=== PATIENT | female | born 1970 | race African-American/Black ===

== ENCOUNTER 2020-04-19 13:05 | Emergency (ER) | payer SELFPAY ==
[2020-04-19 15:00] LABS: #Basophils 0.1 thou/uL (0.0-0.2); #Eosinphils 0.6 thou/uL (0.0-0.7); #Lymphocytes 1.9 thou/uL (1.20-3.40); #Monocytes 0.4 thou/uL (0.11-0.59); #Neutrophils 5.8 thou/uL (1.40-6.50); %Basophils 0.7 % (0.0-1.0); %Eosinophils 6.9 % (0.0-10.0); %Lymphocytes 21.3 % (21.0-51.0); Hemoglobin 13.3 g/dL (12.0-16.0); Mean Corpuscular HGB CONC 33.1 g/dL (32.0-36.0); Mean Corpuscular Hemoglobin 26.4 pg (27.0-31.0); Mean Corpuscular Volume 79.6 fL (78.0-98.0); Mean Platelet Volume 10.4 fL (7.4-10.4); Platelet Count 254 thou/uL (130-400); RBC Distribution Width 14.1 % (11.5-14.5); Red Blood Cell (RBC) Count 5.03 mill/uL (4.20-5.40); White Blood Cell (WBC) Count 8.8 thou/uL (4.8-10.8)
[2020-04-19 15:24] LABS: ALT (SGPT) 22 U/L (8-55); AST (SGOT) 19 U/L (5-34); Albumin 3.8 g/dL (3.5-5.0); Alkaline Phosphatase 72 U/L (40-110); Anion Gap 16 mmol/L (10-20); BUN (Urea Nitrogen) 14 mg/dL (9.8-20.1); Bilirubin, Total 0.2 mg/dL (0.2-1.2); Calc. Creatinine Clearance 0 mL/min (70-130); Calcium 9.1 mg/dL (7.8-10.44); Carbon Dioxide 25 mmol/L (22-29); Chloride 106 mmol/L (98-107); Globulin 4.4 g/dL (2.4-3.5); Glucose 140 mg/dL (70-105); Potassium 3.7 mmol/L (3.5-5.1); Protein, Total 8.2 g/dL (6.0-8.3); Sodium 143 mmol/L (136-145)
--- NOTE | 2020-04-19 16:06 | RAD ---
EXAM: CHEST ONE VIEW HISTORY: Weakness. Covid negative. Dry mouth and hypertension. COMPARISON: None FINDINGS: Cardiac silhouette is magnified by projection. Pulmonary vasculature is within normal limits. The gurdeep gs are clear. Degenerative changes are seen in the thoracic spine. IMPRESSION: No acute cardiopulmonary process.
[2020-04-19] MEDS ORDERED: Labetalol HCl 100 MG/20 ML VIAL ONE (16:53)
--- NOTE | 2020-04-23 16:53 | EKG ---
Test Reason : Blood Pressure : / mmHG Vent. Rate : 103 BPM Atrial Rate : 103 BPM P-R Int : 166 ms QRS Dur : 096 ms QT Int : 360 ms P-R-T Axes : 048 -25 036 degrees QTc Int : 471 ms Sinus tachycardia Possible Left atrial enlargement Left ventricular hypertrophy Abnormal ECG Confirmed by MATT AMBRIZ ([id number]), editorial clerk SLOAN MOSCOSO ([id number] on 04/23/2020 4:52:51 PM Referred By: Confirmed By:MATT Burdick
== END 2020-04-19 17:17 | disposition home or self-care (01) ==
LOC: ERS 13:05
DX: R53.1 Weakness (principal); I10 Essential (primary) hypertension
CPT/HCPCS: 36415; 71045; 80053; 84484; 85025; 93005; 96374

== ENCOUNTER 2021-11-24 21:44 | Emergency (ER) | payer SELFPAY ==
[2021-11-24 22:53] LABS: #Basophils 0.1 thou/uL (0.0-0.2); #Eosinphils 0.5 thou/uL (0.0-0.7); #Lymphocytes 2.5 thou/uL (1.20-3.40); #Monocytes 0.7 thou/uL (0.11-0.59); %Basophils 0.7 % (0.0-1.0); %Eosinophils 4.6 % (0.0-10.0); %Monocytes 6.3 % (0.0-10.0); %Neutrophils 65.5 % (42.0-75.0); Hemoglobin 12.9 g/dL (12.0-16.0); Mean Corpuscular HGB CONC 32.1 g/dL (32.0-36.0); Mean Corpuscular Hemoglobin 25.8 pg (27.0-31.0); Mean Corpuscular Volume 80.3 fL (78.0-98.0); Mean Platelet Volume 9.6 fL (7.4-10.4); Platelet Count 282 thou/uL (130-400); RBC Distribution Width 14.9 % (11.5-14.5); White Blood Cell (WBC) Count 10.7 thou/uL (4.8-10.8)
[2021-11-24 23:14] LABS: ALT (SGPT) 14 U/L (8-55); AST (SGOT) 16 U/L (5-34); Albumin 3.9 g/dL (3.5-5.0); Alkaline Phosphatase 66 U/L (40-110); Anion Gap 16 mmol/L (10-20); BUN (Urea Nitrogen) 11 mg/dL (9.8-20.1); Bilirubin, Total 0.2 mg/dL (0.2-1.2); Calc. Creatinine Clearance 0 mL/min (70-130); Calcium 9.6 mg/dL (7.8-10.44); Carbon Dioxide 23 mmol/L (22-29); Chloride 105 mmol/L (98-107); Estimated GFR 67; Globulin 4.5 g/dL (2.4-3.5); Glucose 109 mg/dL (70-105); Lipase 13 U/L (8-78); Protein, Total 8.4 g/dL (6.0-8.3); Sodium 140 mmol/L (136-145)
[2021-11-24 23:45] LABS: Bilirubin Negative (Negative); Blood, Urine Small (Negative); Glucose, Urine (Dipstick) Negative (Negative); Ketone, Urine Negative (Negative); Leukocyte Negative (Negative); Nitrite Negative (Negative); Protein, Urine (Dipstick) Negative (Neg-Trace); Specific Gravity, Urine 1.025 (1.005-1.030); Urobilinogen 0.2 mg/dL (Less than 2); pH, Urine 5.5 (5.0-9.0)
[2021-11-24 23:46] LABS: Clarity Clear (Clear)
[2021-11-25 00:09] LABS: RBC/HPF 0-3 HPF (0-3); Squamous Epithelial 0-3 HPF (0-3); WBC/HPF 0-3 HPF (0-3)
[2021-11-25 00:10] LABS: Bacteria/HPF 1+ HPF (None Seen)
== END 2021-11-25 01:28 | disposition home or self-care (01) ==
LOC: ERS 21:44
DX: R42 Dizziness and giddiness (principal); R55 Syncope and collapse; R06.4 Hyperventilation; Z79.899 Other long term (current) drug therapy
CPT/HCPCS: 36415; 71045; 80053; 81003; 81015; 83690; 84443; 84484; 85025; 93005

== ENCOUNTER 2021-12-01 11:03 | Emergency (ER) | payer SELFPAY | END 2021-12-01 12:06 | disposition home or self-care (01) | LOC: ERS 11:03 | DX: I10 Essential (primary) hypertension (principal); Z79.899 Other long term (current) drug therapy | CPT/HCPCS: 99283 ==

== ENCOUNTER 2021-12-11 20:59 | Inpatient (IN) | payer SELFPAY ==
[2021-12-11 21:20] LABS: #Basophils 0.1 thou/uL (0.0-0.2); #Eosinphils 0.7 thou/uL (0.0-0.7); #Lymphocytes 3.2 thou/uL (1.20-3.40); #Monocytes 0.7 thou/uL (0.11-0.59); #Neutrophils 4.9 thou/uL (1.40-6.50); %Basophils 0.7 % (0.0-1.0); %Eosinophils 7.4 % (0.0-10.0); %Lymphocytes 33.7 % (21.0-51.0); %Neutrophils 51.2 % (42.0-75.0); Mean Corpuscular HGB CONC 31.9 g/dL (32.0-36.0); Mean Corpuscular Hemoglobin 25.3 pg (27.0-31.0); Mean Corpuscular Volume 79.3 fL (78.0-98.0); Mean Platelet Volume 9.2 fL (7.4-10.4); Platelet Count 263 thou/uL (130-400); RBC Distribution Width 14.6 % (11.5-14.5); Red Blood Cell (RBC) Count 5.13 mill/uL (4.20-5.40); White Blood Cell (WBC) Count 9.6 thou/uL (4.8-10.8)
[2021-12-11 21:42] LABS: ALT (SGPT) 21 U/L (8-55); AST (SGOT) 16 U/L (5-34); Alkaline Phosphatase 64 U/L (40-110); Anion Gap 12 mmol/L (10-20); BUN (Urea Nitrogen) 14 mg/dL (9.8-20.1); Bilirubin, Total 0.2 mg/dL (0.2-1.2); Calc. Creatinine Clearance 0 mL/min (70-130); Calcium 9.9 mg/dL (7.8-10.44); Carbon Dioxide 28 mmol/L (22-29); Chloride 107 mmol/L (98-107); Estimated GFR 68; Globulin 4.5 g/dL (2.4-3.5); Glucose 103 mg/dL (70-105); Lipase 18 U/L (8-78); Potassium 4.2 mmol/L (3.5-5.1); Protein, Total 8.5 g/dL (6.0-8.3); Sodium 143 mmol/L (136-145)
[2021-12-12 00:24] LABS: Magnesium 2.2 mg/dL (1.6-2.6)
[2021-12-12] MEDS ORDERED: Ondansetron PF 4 MG/2 ML Vial IVP PRN (01:30)
[2021-12-12] MEDS ORDERED: Ondansetron ODT 4 MG TAB SL PRN (01:30)
[2021-12-12] MEDS ORDERED: Acetaminophen 325 MG TAB PO PRN (01:30)
[2021-12-12 01:34] VITALS: BMI 54.1
[2021-12-12] MEDS ORDERED: hydrALAZINE 20 MG/ML VIAL SLOW IVP PRN (03:20)
[2021-12-12 05:26] LABS: Anion Gap 15 mmol/L (10-20); BUN (Urea Nitrogen) 13 mg/dL (9.8-20.1); Calc. Creatinine Clearance 200 mL/min (70-130); Calcium 9.3 mg/dL (7.8-10.44); Carbon Dioxide 22 mmol/L (22-29); Chloride 108 mmol/L (98-107); Estimated GFR 84; Glucose 106 mg/dL (70-105); Magnesium 2.1 mg/dL (1.6-2.6); Potassium 3.8 mmol/L (3.5-5.1); Sodium 141 mmol/L (136-145)
[2021-12-12 05:55] LABS: Band 1 % (5-11); Eosinophils 6 % (0-10); Hemoglobin 11.4 g/dL (12.0-16.0); Lymphocytes 39 % (21-51); MDiff Complete? YES; Mean Corpuscular HGB CONC 32.1 g/dL (32.0-36.0); Mean Corpuscular Hemoglobin 25.4 pg (27.0-31.0); Mean Platelet Volume 10.5 fL (7.4-10.4); Monocytes 3 % (0-10); Neutrophil 51 % (42-75); Platelet Count 218 thou/uL (130-400); Platelet Morphology Comment Appears Adequate; RBC Distribution Width 14.9 % (11.5-14.5); RBC Morphology Normal; White Blood Cell (WBC) Count 8.4 thou/uL (4.8-10.8)
[2021-12-12] MEDS: Enoxaparin Sodium 40 MG/0.4 ML SYRINGE SC SCH (08:08)
[2021-12-12] MEDS: hydrALAZINE 20 MG/ML VIAL SLOW IVP PRN ×2 (19:23→20:55)
[2021-12-12] MEDS: Acetaminophen 325 MG TAB PO PRN (21:09)
[2021-12-13] MEDS: Acetaminophen 325 MG TAB PO PRN ×2 (03:24→10:05)
[2021-12-13] MEDS: hydrALAZINE 20 MG/ML VIAL SLOW IVP PRN (03:25)
[2021-12-13 04:45] LABS: #Eosinphils 0.5 thou/uL (0.0-0.7); #Lymphocytes 2.4 thou/uL (1.20-3.40); #Monocytes 0.5 thou/uL (0.11-0.59); %Basophils 0.5 % (0.0-1.0); %Eosinophils 6.6 % (0.0-10.0); %Lymphocytes 32.7 % (21.0-51.0); %Monocytes 6.1 % (0.0-10.0); Hemoglobin 13.1 g/dL (12.0-16.0); Mean Corpuscular HGB CONC 32.7 g/dL (32.0-36.0); Mean Corpuscular Hemoglobin 25.9 pg (27.0-31.0); Mean Corpuscular Volume 79.4 fL (78.0-98.0); Platelet Count 245 thou/uL (130-400); RBC Distribution Width 14.9 % (11.5-14.5); Red Blood Cell (RBC) Count 5.06 mill/uL (4.20-5.40); White Blood Cell (WBC) Count 7.5 thou/uL (4.8-10.8)
[2021-12-13 06:04] LABS: Anion Gap 17 mmol/L (10-20); BUN (Urea Nitrogen) 11 mg/dL (9.8-20.1); Calc. Creatinine Clearance 207 mL/min (70-130); Calcium 9.3 mg/dL (7.8-10.44); Carbon Dioxide 20 mmol/L (22-29); Chloride 108 mmol/L (98-107); Estimated GFR 88; Glucose 99 mg/dL (70-105); Potassium 3.9 mmol/L (3.5-5.1); Sodium 141 mmol/L (136-145)
[2021-12-13] MEDS: Enoxaparin Sodium 40 MG/0.4 ML SYRINGE SC SCH (07:59)
[2021-12-13] MEDS ORDERED: Carvedilol 6.25 MG TAB PO SCH (08:00)
[2021-12-13] MEDS ORDERED: cloNIDine 0.1 MG TAB PO SCH (09:00)
[2021-12-13 11:52] VITALS: TEMP 98
[2021-12-13 13:57] VITALS: BP 163/92
== END 2021-12-13 12:22 | disposition home or self-care (01) | DRG 918 ==
LOC: ERS 20:59 → 2SW 23:52 → OBSVTOIN 12-12 15:31
PROVIDERS: ADMIT Internal Medicine; ATTEND Hospitalist
DX: T46.5X1A Poisoning by other antihypertensive drugs, accidental (unintentional), initial encounter (principal); Z68.43 Body mass index [BMI] 50.0-59.9, adult; T44.7X1A Poisoning by beta-adrenoreceptor antagonists, accidental (unintentional), initial encounter; I10 Essential (primary) hypertension; T44.7X5A Adverse effect of beta-adrenoreceptor antagonists, initial encounter; E66.01 Morbid (severe) obesity due to excess calories; T46.5X5A Adverse effect of other antihypertensive drugs, initial encounter; Z20.822 Contact with and (suspected) exposure to COVID-19; Z88.5 Allergy status to narcotic agent; Z79.899 Other long term (current) drug therapy; Y92.009 Unspecified place in unspecified non-institutional (private) residence as the place of occurrence of the external cause
CPT/HCPCS: 36415; 71045; 80048; 80053; 83690; 83735; 84443; 84484; 85025; 93005; 93306; J0360; J1650; U0003; U0005

== ENCOUNTER 2021-12-19 18:18 | Emergency (ER) | payer SELFPAY ==
[2021-12-19] MEDS ORDERED: hydrALAZINE 20 MG/ML VIAL ONE (19:06)
[2021-12-19 19:08] LABS: #Basophils 0.1 thou/uL (0.0-0.2); #Eosinphils 0.5 thou/uL (0.0-0.7); #Lymphocytes 2.4 thou/uL (1.20-3.40); #Monocytes 0.7 thou/uL (0.11-0.59); #Neutrophils 7.2 thou/uL (1.40-6.50); %Basophils 0.7 % (0.0-1.0); %Eosinophils 4.9 % (0.0-10.0); %Lymphocytes 21.8 % (21.0-51.0); %Monocytes 6.1 % (0.0-10.0); %Neutrophils 66.4 % (42.0-75.0); Hemoglobin 12.8 g/dL (12.0-16.0); Mean Corpuscular HGB CONC 32.3 g/dL (32.0-36.0); Mean Corpuscular Hemoglobin 25.4 pg (27.0-31.0); Mean Corpuscular Volume 78.6 fL (78.0-98.0); Mean Platelet Volume 9.9 fL (7.4-10.4); Platelet Count 258 thou/uL (130-400); RBC Distribution Width 14.9 % (11.5-14.5); Red Blood Cell (RBC) Count 5.03 mill/uL (4.20-5.40); White Blood Cell (WBC) Count 10.9 thou/uL (4.8-10.8)
[2021-12-19 19:43] LABS: ALT (SGPT) 33 U/L (8-55); AST (SGOT) 23 U/L (5-34); Albumin 4.1 g/dL (3.5-5.0); Alkaline Phosphatase 66 U/L (40-110); Anion Gap 16 mmol/L (10-20); BUN (Urea Nitrogen) 12 mg/dL (9.8-20.1); Bilirubin, Total 0.3 mg/dL (0.2-1.2); CK (CPK) 110 U/L (29-168); Calc. Creatinine Clearance 0 mL/min (70-130); Calcium 9.5 mg/dL (7.8-10.44); Carbon Dioxide 24 mmol/L (22-29); Chloride 105 mmol/L (98-107); Estimated GFR 64; Globulin 4.3 g/dL (2.4-3.5); Glucose 94 mg/dL (70-105); Lipase 17 U/L (8-78); Potassium 3.9 mmol/L (3.5-5.1); Protein, Total 8.4 g/dL (6.0-8.3); Sodium 141 mmol/L (136-145)
== END 2021-12-19 20:35 | disposition home or self-care (01) ==
LOC: ERS 18:18
DX: I10 Essential (primary) hypertension (principal); Z79.899 Other long term (current) drug therapy
CPT/HCPCS: 80053; 82550; 83690; 84484; 85025; 93005; 96374; J0360

== ENCOUNTER 2021-12-23 17:52 | Emergency (ER) | payer SELFPAY ==
[2021-12-23 18:41] LABS: #Basophils 0.1 thou/uL (0.0-0.2); #Eosinphils 0.6 thou/uL (0.0-0.7); #Lymphocytes 2.6 thou/uL (1.20-3.40); #Monocytes 0.8 thou/uL (0.11-0.59); #Neutrophils 5.8 thou/uL (1.40-6.50); %Basophils 0.9 % (0.0-1.0); %Eosinophils 5.9 % (0.0-10.0); %Monocytes 8.2 % (0.0-10.0); Mean Corpuscular HGB CONC 32.8 g/dL (32.0-36.0); Mean Corpuscular Hemoglobin 25.9 pg (27.0-31.0); Mean Platelet Volume 9.9 fL (7.4-10.4); Platelet Count 295 thou/uL (130-400); RBC Distribution Width 14.9 % (11.5-14.5); Red Blood Cell (RBC) Count 5.02 mill/uL (4.20-5.40); White Blood Cell (WBC) Count 9.8 thou/uL (4.8-10.8)
[2021-12-23] MEDS ORDERED: hydrALAZINE 25 MG TAB ONE (18:46)
[2021-12-23 18:59] LABS: Anion Gap 17 mmol/L (10-20); BUN (Urea Nitrogen) 17 mg/dL (9.8-20.1); Calc. Creatinine Clearance 0 mL/min (70-130); Calcium 9.5 mg/dL (7.8-10.44); Carbon Dioxide 21 mmol/L (22-29); Chloride 107 mmol/L (98-107); Estimated GFR 67; Glucose 96 mg/dL (70-105); Potassium 4.2 mmol/L (3.5-5.1); Sodium 141 mmol/L (136-145)
[2021-12-23] MEDS ORDERED: Carvedilol 6.25 MG TAB PO SCH (19:00)
[2021-12-23] MEDS ORDERED: Amlodipine 5 MG TAB ONE (19:48)
[2021-12-23 20:54] LABS: Bacteria/HPF None Seen HPF (None Seen); Bilirubin Negative (Negative); Blood, Urine Negative (Negative); Clarity Clear (Clear); Glucose, Urine (Dipstick) Normal (Negative); Ketone, Urine Negative (Negative); Leukocyte 25 Leu/uL (Negative); Nitrite Negative (Negative); Protein, Urine (Dipstick) Negative (Neg-Trace); RBC/HPF 0-3 HPF (0-3); Specific Gravity, Urine 1.017 (1.002-1.036); Squamous Epithelial 0-3 HPF (0-3); Urobilinogen Normal mg/dL (Less than 2); WBC/HPF 0-3 HPF (0-3)
== END 2021-12-23 21:00 | disposition home or self-care (01) ==
LOC: ERS 17:52
DX: I10 Essential (primary) hypertension (principal); Z79.899 Other long term (current) drug therapy
CPT/HCPCS: 36415; 80048; 81003; 81015; 84484; 85025; 93005

== ENCOUNTER 2022-01-29 21:35 | Emergency (ER) | payer SELFPAY ==
[2022-01-29 22:10] LABS: #Basophils 0.1 thou/uL (0.0-0.2); #Eosinphils 0.7 thou/uL (0.0-0.7); #Lymphocytes 2.8 thou/uL (1.20-3.40); #Monocytes 0.7 thou/uL (0.11-0.59); #Neutrophils 5.9 thou/uL (1.40-6.50); %Basophils 0.6 % (0.0-1.0); %Eosinophils 6.5 % (0.0-10.0); %Lymphocytes 27.9 % (21.0-51.0); %Monocytes 6.9 % (0.0-10.0); %Neutrophils 58.1 % (42.0-75.0); Hemoglobin 12.1 g/dL (12.0-16.0); Mean Corpuscular HGB CONC 31.8 g/dL (32.0-36.0); Mean Corpuscular Hemoglobin 25.5 pg (27.0-31.0); Mean Corpuscular Volume 80.2 fL (78.0-98.0); Mean Platelet Volume 9.6 fL (7.4-10.4); Platelet Count 273 thou/uL (130-400); RBC Distribution Width 14.3 % (11.5-14.5); Red Blood Cell (RBC) Count 4.75 mill/uL (4.20-5.40); White Blood Cell (WBC) Count 10.1 thou/uL (4.8-10.8)
[2022-01-29 22:32] LABS: ALT (SGPT) 17 U/L (8-55); AST (SGOT) 14 U/L (5-34); Albumin 3.8 g/dL (3.5-5.0); Alkaline Phosphatase 63 U/L (40-110); Anion Gap 13 mmol/L (10-20); BUN (Urea Nitrogen) 12 mg/dL (9.8-20.1); Bilirubin, Total 0.3 mg/dL (0.2-1.2); Calc. Creatinine Clearance 0 mL/min (70-130); Calcium 9.2 mg/dL (7.8-10.44); Carbon Dioxide 25 mmol/L (22-29); Chloride 106 mmol/L (98-107); Estimated GFR 64; Globulin 4.1 g/dL (2.4-3.5); Glucose 100 mg/dL (70-105); Potassium 3.9 mmol/L (3.5-5.1); Protein, Total 7.9 g/dL (6.0-8.3); Sodium 140 mmol/L (136-145)
== END 2022-01-29 23:20 | disposition home or self-care (01) ==
LOC: ERS 21:35
DX: R00.2 Palpitations (principal); I10 Essential (primary) hypertension; Z79.899 Other long term (current) drug therapy
CPT/HCPCS: 36415; 71045; 80053; 85025; 93005

== ENCOUNTER 2022-11-10 23:07 | Emergency (ER) | payer SELFPAY | END 2022-11-11 00:05 | disposition home or self-care (01) | LOC: ERS 23:07 | DX: I10 Essential (primary) hypertension (principal) | CPT/HCPCS: 93005 ==

== ENCOUNTER 2023-05-14 14:21 | Inpatient (IN) | payer SELFPAY ==
[2023-05-14 15:12] LABS: #Basophils 0.1 thou/uL (0.0-0.2); #Eosinphils 0.5 thou/uL (0.0-0.7); #Monocytes 0.8 thou/uL (0.11-0.59); #Neutrophils 6.5 thou/uL (1.40-6.50); %Basophils 0.6 % (0.0-1.0); %Eosinophils 4.7 % (0.0-10.0); %Lymphocytes 26.6 % (21.0-51.0); %Monocytes 7.3 % (0.0-10.0); %Neutrophils 60.5 % (42.0-75.0); Hemoglobin 13.3 g/dL (12.0-16.0); Mean Corpuscular HGB CONC 31.7 g/dL (32.0-36.0); Mean Corpuscular Hemoglobin 25.2 pg (27.0-31.0); Mean Corpuscular Volume 79.7 fl (78.0-98.0); Mean Platelet Volume 11.3 fL (7.4-10.4); Platelet Count 323 10x3/uL (130-400); RBC Distribution Width 15.2 % (11.5-14.5); Red Blood Cell (RBC) Count 5.27 mill/uL (4.20-5.40); White Blood Cell (WBC) Count 10.8 10x3/uL (4.8-10.8)
[2023-05-14 15:40] LABS: Troponin I Less than 0.010 ng/mL (< 0.028)
[2023-05-14 15:43] LABS: ALT (SGPT) 16 U/L (8-55); AST (SGOT) 13 U/L (5-34); Albumin 3.9 g/dL (3.5-5.0); Alkaline Phosphatase 67 U/L (40-110); Anion Gap 15 mmol/L (10-20); BUN (Urea Nitrogen) 15 mg/dL (9.8-20.1); Bilirubin, Total 0.2 mg/dL (0.2-1.2); Calc. Creatinine Clearance 0 mL/min (70-130); Calcium 9.2 mg/dL (7.8-10.44); Carbon Dioxide 23 mmol/L (22-29); Chloride 108 mmol/L (98-107); Estimated GFR 80; Globulin 3.8 g/dL (2.4-3.5); Glucose 90 mg/dL (70-105); Lipase 28 U/L (8-78); Potassium 3.7 mmol/L (3.5-5.1); Protein, Total 7.7 g/dL (6.0-8.3); Sodium 142 mmol/L (136-145)
[2023-05-14] MEDS ORDERED: Acetaminophen 650 MG Suppository PR PRN (17:13)
[2023-05-14] MEDS ORDERED: Bisacodyl 5 MG TAB PO PRN (17:13)
[2023-05-14] MEDS ORDERED: Ondansetron ODT 4 MG TAB PO PRN (17:13)
[2023-05-14] MEDS ORDERED: Loperamide HCl 2 MG CAP PO PRN ×2 (17:13)
[2023-05-14] MEDS ORDERED: Moisturizing Cream (Eucerin) 113 GM JAR TOP PRN (17:13)
[2023-05-14] MEDS ORDERED: Artificial Tear Sol 15 ML BOT EA EYE PRN (17:13)
[2023-05-14] MEDS ORDERED: Senokot S 8.6-50 MG TAB PO PRN (17:13)
[2023-05-14] MEDS ORDERED: Nitroglycerin 0.4 MG TAB (25 Tab Bottle) SL PRN (17:13)
[2023-05-14] MEDS ORDERED: Ondansetron PF 4 MG/2 ML Vial IVP PRN (17:13)
[2023-05-14] MEDS ORDERED: Acetaminophen 325 MG TAB PO PRN (17:13)
[2023-05-14] MEDS ORDERED: Benzonatate 100 MG CAP PO PRN (17:13)
[2023-05-14] MEDS ORDERED: Carvedilol 6.25 MG TAB PO SCH (18:00)
[2023-05-14 18:42] LABS: Cardiac Risk 3.7 (Less than 4.5); Cholesterol 149 mg/dl (< 200 Desired); HDL Cholesterol 40 mg/dL (>60 Neg Risk); LDL Cholesterol, Calculated 89 mg/dL; Magnesium 2.2 mg/dL (1.6-2.6); Phosphorus 3.4 mg/dL (2.3-4.7); Triglycerides 99 mg/dL (Less than 150)
[2023-05-14 18:48] LABS: Troponin I Less than 0.010 ng/mL (< 0.028)
[2023-05-14 19:08] LABS: Free T4 (Free Thyroxine) 0.96 ng/dL (0.70-1.48); Thyroid Stimulating Hormone 1.2075 uIU/mL (0.35-4.94)
[2023-05-14] MEDS: Famotidine 20 MG TAB PO SCH (20:34)
[2023-05-14] MEDS: hydrALAZINE 25 MG TAB PO SCH (20:34)
[2023-05-14] MEDS: Apixaban 5 MG TAB PO SCH (20:34)
[2023-05-14 21:38] LABS: SARS-CoV-2 NAA Rapid Test Not Detected (NotDetected)
[2023-05-14 21:50] VITALS: BMI 50.9
[2023-05-15] MEDS ORDERED: Enoxaparin 40 MG (0.4 mL) SYRINGE SC SCH (09:00)
[2023-05-15] MEDS: Carvedilol 6.25 MG TAB PO SCH ×2 (09:07→16:44)
[2023-05-15] MEDS: Famotidine 20 MG TAB PO SCH ×2 (09:08→20:08)
[2023-05-15] MEDS: Apixaban 5 MG TAB PO SCH ×2 (09:08→20:08)
[2023-05-15] MEDS: hydrALAZINE 25 MG TAB PO SCH ×3 (09:09→20:09)
[2023-05-16 07:51] VITALS: BP 136/76; TEMP 97.8
[2023-05-16] MEDS: Apixaban 5 MG TAB PO SCH (09:03)
[2023-05-16] MEDS: Famotidine 20 MG TAB PO SCH (09:03)
[2023-05-16] MEDS: Carvedilol 6.25 MG TAB PO SCH (09:03)
[2023-05-16] MEDS: hydrALAZINE 25 MG TAB PO SCH (09:04)
== END 2023-05-16 11:49 | disposition home or self-care (01) | DRG 309 ==
LOC: ERS 14:21 → ERHOLD 17:17 → 2SW 19:56 → OBSVTOIN 05-16 08:44
PROVIDERS: ADMIT Family Medicine; ATTEND Internal Medicine
DX: I48.91 Unspecified atrial fibrillation (principal); Z68.43 Body mass index [BMI] 50.0-59.9, adult; E66.01 Morbid (severe) obesity due to excess calories; I10 Essential (primary) hypertension; Z88.8 Allergy status to other drugs, medicaments and biological substances; Z79.899 Other long term (current) drug therapy; Z82.49 Family history of ischemic heart disease and other diseases of the circulatory system; Z11.52 Encounter for screening for COVID-19
CPT/HCPCS: 0241U; 36415; 71045; 80053; 80061; 83690; 83735; 84100; 84439; 84443; 84481; 84484; 85025; 93005; 93306; G0378